=== PATIENT | male | born 1950 | race Caucasian/White ===

== ENCOUNTER 2023-11-20 11:08 | Day surgery (SDC) | payer MEDICARE ==
[2023-11-19 15:46] LABS: BASOPHILS # (AUTO) 0.1 X10'3 (0-0.2); BASOPHILS % (AUTO) 1.2 % (0-1); EOSINOPHILS # (AUTO) 0.2 X10'3 (0-0.9); EOSINOPHILS % (AUTO) 2.9 % (0-6); LYMPHOCYTES # (AUTO) 1.4 X10'3 (1.1-4.8); LYMPHOCYTES % (AUTO) 21.2 % (21-51); MEAN CORPUSCULAR HEMOGLOBIN 31.2 PG (27.0-31.0); MEAN CORPUSCULAR HGB CONC 34.9 g/dL (33.0-36.5); MEAN CORPUSCULAR VOLUME 89.3 FL (78-98); MEAN PLATELET VOLUME 8.1 FL (7.4-10.4); MONOCYTES # (AUTO) 0.5 X10'3 (0-0.9); MONOCYTES % (AUTO) 8.2 % (2-12); NEUTROPHILS # (AUTO) 4.3 X10'3 (1.8-7.7); NEUTROPHILS % (AUTO) 66.5 % (42-75); PRE OP HEMATOCRIT 43.2 % (42.0-52.0); PRE OP HEMOGLOBIN 15.1 g/dL (14.0-17.9); PRE OP PLATELET COUNT 177 X10'3 (140-440); PRE OP WHITE BLOOD COUNT 6.4 10'3 (4.8-10.8); RED BLOOD COUNT 4.83 X10'6 (4.70-6.10); RED CELL DISTRIBUTION WIDTH 13.3 % (11.5-14.5)
[2023-11-19 16:05] LABS: ALBUMIN 3.8 G/DL (3.4-5.0); ALBUMIN/GLOBULIN RATIO 1.1 (1.1-1.5); ALKALINE PHOSPHATASE 58 IU/L (46-116); BLOOD UREA NITROGEN 15 MG/DL (7-18); BUN/CREATININE RATIO 16.5 (10.0-20.0); CALCIUM 8.5 MG/DL (8.5-10.1); CHLORIDE 106 MMOL/L (99-107); CREATININE 0.91 MG/DL (0.60-1.10); PRE OP ALT 30 U/L (30-65); PRE OP ANION GAP 10 (8-16); PRE OP AST 23 U/L (10-37); PRE OP BILIRUB, TOTAL 0.8 MG/DL (0.0-1.0); PRE OP GLUCOSE 132 MG/DL (70-104); PRE OP POTASSIUM 4.4 MMOL/L (3.4-5.1); PRE OP SODIUM 141 MMOL/L (135-145); TOTAL CARBON DIOXIDE 25.4 MMOL/L (24-32); TOTAL PROTEIN 7.2 G/DL (6.4-8.2); eGFR 82 ML/MIN
[~2023-11-20] VITALS: Ht 188 cm; Wt 111.7 kg
[~2023-11-20 11:08] MED LIST: HYDR-3973 PO; LORA10TA65 PO; MONT-40 PO; OMEP20CA16 PO
[2023-11-20 11:45] VITALS: BP 130/73; PULSE 86; RESP 15; TEMP 97.3; O2SAT 95
[2023-11-20] MEDS: famotidine 20mg tablet PO ONE (11:49)
[2023-11-20] MEDS: ringers solution, lacted 1,000 ML IV SCH (11:49)
[2023-11-20] MEDS ORDERED: fentaNYL/PF 50MCG/1 ML 2ML syringe ONE (12:15)
[2023-11-20] MEDS ORDERED: midazolam 1 mg/ML 2ml injection ONE (12:15)
[2023-11-20] MEDS ORDERED: rocuronium 10mg/ml inj IV ONE (12:16)
[2023-11-20] MEDS ORDERED: propofol inj 20 ML IV ONE (12:16)
[2023-11-20] MEDS ORDERED: sevoflurane 250ml liquid IH ONE (12:17)
[2023-11-20] MEDS ORDERED: ondansetron/PF 4mg/2ml inj ONE (13:22)
[2023-11-20] MEDS ORDERED: glycopyrrolate 0.2mg/ml inj ONE (13:22)
[2023-11-20] MEDS ORDERED: dexamethasone sod phosphate 4mg/ml inj. ONE (13:22)
[2023-11-20] MEDS ORDERED: neostigmine methylsulfate 1 MG/ML 10ml vial ONE (13:22)
[2023-11-20 13:26] VITALS: BP 136/81; PULSE 92; RESP 16; O2SAT 98
[2023-11-20 13:40] VITALS: BP 117/75; PULSE 91; RESP 20; O2SAT 99
[2023-11-20 13:50] VITALS: BP 122/79; PULSE 91; RESP 16; O2SAT 94
[2023-11-20 14:00] VITALS: BP 117/72; PULSE 88; RESP 13; O2SAT 98
== END 2023-11-20 14:16 | disposition home or self-care (01) ==
LOC: PAS 11:08
PROVIDERS: ATTEND Internal Medicine Critical Care Medicine
DX: R91.8 Other nonspecific abnormal finding of lung field (principal); J98.4 Other disorders of lung; J84.10 Pulmonary fibrosis, unspecified; J44.9 Chronic obstructive pulmonary disease, unspecified; Z85.118 Personal history of other malignant neoplasm of bronchus and lung; Z87.891 Personal history of nicotine dependence; Z98.890 Other specified postprocedural states; Z85.828 Personal history of other malignant neoplasm of skin; Z79.899 Other long term (current) drug therapy
CPT/HCPCS: 31628; 31629; 31653; 36415; 71045; 80053; 82948; 85025; 87015; 87070; 87102; 87116; 87206; 94760; J1100; J2250; J2405; J2704; J2710; J3010; J3490; J7120; Z7506; Z7508; Z7512; 31622; 31624; 31625; 31626; 31627; 31654; A4618